=== PATIENT | male | born 1980 | race American Indian/Alaskan Native ===

== ENCOUNTER 2018-12-22 11:23 | Emergency (ER) | payer SELFPAY ==
[2018-12-22] MEDS ORDERED: ASPIRIN PO ONE (11:31)
[2018-12-22 11:32] VITALS: BP 115/79
--- NOTE | 2018-12-22 11:33 | Event Note ---
ED Screening Note Date of service: 12/22/18 Time: 11:29 ED Screening Note: This is a 38 y.o. M. that presents to the ER with chest pain x 1 week. Current cigarette and marijuana smoker. This initial assessment/diagnostic orders/clinical plan/treatment(s) is/are subject to change based on patients health status, clinical progression and re- assessment by fellow clinical providers in the ED. Further treatment and workup at subsequent clinical providers discretion. Patient/guardian urged not to elope from the ED as their condition may be serious if not clinically assessed and managed. Initial orders include: Labs, EKG, & CXR
[2018-12-22] MEDS ORDERED: TYLENOL/CODEINE PO ONE (12:03)
--- NOTE | 2018-12-22 12:03 | Emergency Department Report ---
Minor Respiratory - HPI Chief Complaint: Chest Pain Stated Complaint: SIDE/CHEST PAIN/SORE THROAT Time Seen by Provider: 12/22/18 11:29 Duration: 5 Days Pain Location: Other Severity: mild Minor Respiratory: Yes Sore Throat, Yes Able to Tolerate Fluids, Yes Cough (produc), No Rhinorrhea, No Ear Pain, No Sick Contacts, No Hemoptysis, No Chest Pain, No Shortness of Breath, No Fever Other History: This is a 38-year-old healthy looking male with no prior medical history who presents to ED complaining of a dry to productive cough 1 week. Patient states that coughing is intermittent throughout the day. She states that the lump of yellowish sputum. She denies fevers/chills/nausea vomiting ED Review of Systems ROS: Stated complaint: SIDE/CHEST PAIN/SORE THROAT Other details as noted in HPI Comment: All other systems reviewed and negative ED Past Medical Hx - Past Medical History Previous Medical History?: No - Surgical History Past Surgical History?: No - Social History Smoking Status: Current Every Day Smoker Substance Use Type: Alcohol, Marijuana - Medications Home Medications: Home Medications Medication Instructions Recorded Confirmed Last Taken Type ALBUTEROL Inhaler (OR & NICU) 2 puff IH QID PRN #1 inhalation 12/22/18 Unknown Rx [ProAir HFA Inhaler] guaiFENesin [Robitussin] 200 mg PO Q6HR #100 ml 12/22/18 Unknown Rx Minor Respiratory Exam - Exam General: Vital signs noted. No distress. Alert and acting appropriately. HEENT: Yes Moist Mucous Membranes, No Pharyngeal Erythema, No Pharyngeal Exudates, No Rhinorrhea, No Conjuctival Injection, No Frontal Tenderness, No Maxillary Tenderness Ear: Neither TM Bulge, Neither TM Erythema, Neither EAC Pain, Neither EAC Discharge Neck: Yes Supple, No Adenopathy Lungs: Yes Good Air Exchange, Yes Cough, No Wheezes, No Ronchi, No Stridor, No Labored Respirations, No Retractions, No Use of Accessory Muscles, No Other Abnormal Lung Sounds Heart: Yes Regular, No Murmur Abdomen: Yes Normal Bowel Sounds, No Tenderness, No Peritoneal Signs Skin: No Rash, No Edema Neurologic: Alert and oriented, no deficits. Musculoskeletal: Unremarkable. ED Course Vital Signs 12/22/18 11:29 Temperature 98.2 F Pulse Rate 87 Respiratory 16 Rate Blood Pressure 115/79 [Right] O2 Sat by Pulse 97 Oximetry ED Medical Decision Making - Radiology Data Radiology results: report reviewed, image reviewed CHEST 2 VIEWS INDICATION / CLINICAL INFORMATION: Chest Pain. COMPARISON: None available. FINDINGS: SUPPORT DEVICES: None. HEART / MEDIASTINUM: No significant abnormality. LUNGS / PLEURA: No significant pulmonary or pleural abnormality. No pneumothorax. ADDITIONAL FINDINGS: No significant additional findings. IMPRESSION: 1. No acute findings. Signer Name: Delano Pa MD Signed: 12/22/2018 12:12 PM Workstation Name: [id number] Transcribed By: TL Dictated By: Delano Pa MD Electronically Authenticated By: Delano Pa MD Signed Date/Time: 12/22/18 1212 - Medical Decision Making 38-year-old male presents with a respiratory infection ED course: Patient received Tylenol with codeine in the ED to help with pain with coughing cxr shows no acute cardiopulmonary infection Discussed findings with the patient. Discussed follow-up with primary care physician in 3-5 days. Patient is in no respiratory or acute distress. Critical care attestation.: If time is entered above; I have spent that time in minutes in the direct care of this critically ill patient, excluding procedure time. ED Disposition Clinical Impression: Bronchitis, Upper respiratory infection Disposition: [id number] TO HOME OR SELFCARE Is pt being admited?: No Does the pt Need Aspirin: No Condition: Stable Instructions: Chronic Bronchitis (ED) Additional Instructions: Make sure to follow up with the primary care physician as discussed. Take all your medications as you've been prescribed. If you have any worsening symptoms or develop new symptoms please return to ED immediately. Prescriptions: ALBUTEROL Inhaler (OR & NICU) [ProAir HFA Inhaler] 2 puff IH QID PRN #1 inhalation PRN Reason: Shortness Of Breath guaiFENesin [Robitussin] 200 mg PO Q6HR #100 ml Referrals: ANGEL MCCORMACK MD [Primary Care Provider] - 3-5 Days [facility] [Outside] - 3-5 Days [facility] [Outside] - 3-5 Days [facility] [Outside] - 3-5 Days Forms: Work/School Release Form(ED) Time of Disposition: 12:37
--- NOTE | 2018-12-22 12:16 | XRay Report ---
CHEST 2 VIEWS INDICATION / CLINICAL INFORMATION: Chest Pain. COMPARISON: None available. FINDINGS: SUPPORT DEVICES: None. HEART / MEDIASTINUM: No significant abnormality. LUNGS / PLEURA: No significant pulmonary or pleural abnormality. No pneumothorax. ADDITIONAL FINDINGS: No significant additional findings. IMPRESSION: 1. No acute findings. Signer Name: Delano Pa MD Signed: 12/22/2018 12:12 PM Workstation Name: [id number]
== END 2018-12-22 12:48 | disposition home or self-care (01) ==
LOC: ED 11:23
DX: J40 Bronchitis, not specified as acute or chronic (principal); J06.9 Acute upper respiratory infection, unspecified; F17.200 Nicotine dependence, unspecified, uncomplicated; F12.10 Cannabis abuse, uncomplicated; Z79.899 Other long term (current) drug therapy
CPT/HCPCS: 71046; 93005; 93010